=== PATIENT | female | born 1970 | race African-American/Black ===

== ENCOUNTER 2019-04-13 20:55 | Inpatient (IN) | payer OTHER ==
[2019-04-13 22:36] VITALS: BMI 22.8
--- NOTE | 2019-04-14 02:56 | HP ---
COWS - Scale Resting Pulse: 0= [place] 80 or Below Sweatin=Flushed/Facial Moisture Restless Observation: 0= Sits Still Pupil Size: 0= Normal to Room Light Bone or Joint Aches: 4=Acute Joint/Muscle Pain Runny Nose/ Eye Tearin= Runny Nose/Eyes GI Upset > 30mins: 1= Stomach Cramp Tremor Observation: 2= Slight Tremor Visible Yawning Observation: 0= None Anxiety or Irritability: 0= None Goose Flesh Skin: 3=Piloerection COWS Score: 14 CIWA Score Nausea/Vomitin-Mild Nausea/No Vomiting Muscle Tremors: 3 Anxiety: 3 Agitation: 3 Paroxysmal Sweats: 3 Orientation: 0-Oriented Tacttile Disturbances: 0-None Auditory Disturbances: 0-None Visual Disturbances: 0-None Headache: 2-Mild CIWA-Ar Total Score: 15 - Admission Criteria OASAS Guidelines: Admission for Medically Managed Detox: Requires at least one of the followin. CIWA greater than 12 2. Seizures within the past 24 hours 3. Delirium tremens within the past 24 hours 4. Hallucinations within the past 24 hours 5. Acute intervention needed for co occurring medical disorder 6. Acute intervention needed for co occurring psychiatric disorder 7. Severe withdrawal that cannot be handled at a lower level of care (continued vomiting, continued diarrhea, abnormal vital signs) requiring intravenous medication and/or fluids 8. Admission ROS [facility] Chief Complaint: SEEKING ADMISSION TO DETOX FROM HEROIN AND ALCOHOL Allergies/Adverse Reactions: Allergies Allergy/AdvReac Type Severity Reaction Status Date / Time No Known Allergies Allergy Verified 04/13/19 22:25 History of Present Illness: 48 years old male with a long history of heroin and alcohol dependence is seeking admission to detox.Patient has been in previous detox and reports insignificant period of sobriety. He denies past medical history and reports psych history of anxiety. denies suicidal ideation at this time Exam Limitations: No Limitations - Ebola screening Have you traveled outside of the country in the last 21 days: No (N) Have you had contact with anyone from an Ebola affected area: No Do you have a fever: No - Review of Systems Constitutional: Chills, Malaise, Changes in sleep EENT: reports: Nose Congestion Respiratory: reports: No Symptoms reported Cardiac: reports: No Symptoms Reported GI: reports: Poor Appetite, Poor Fluid Intake : reports: No Symptoms Reported, Flank Pain Musculoskeletal: reports: Back Pain, Joint Pain Integumentary: reports: Dryness, Flushing Neuro: reports: Tremors Endocrine: reports: No Symptoms Reported Hematology: reports: No Symptoms Reported Psychiatric: reports: Judgement Intact, Mood/Affect Appropiate, Orientated x3, Anxious Other Systems: Reviewed and Negative Patient History - Patient Medical History Hx Chronic Obstructive Pulmonary Disease (COPD): No Hx Cancer: No Hx Cardiac Disorders: No Hx Congestive Heart Failure: No Hx Hypertension: No Hx Hypercholesterolemia: No Hx Pacemaker: No HX Cerebrovascular Accident: No Hx Seizures: No Hx Dementia: No Hx Diabetes: No Hx Gastrointestinal Disorders: No Hx Liver Disease: No Hx Genitourinary Disorders: No Hx Sexually Transmitted Disorders: No Hx Renal Disease (ESRD): No Hx Thyroid Disease: No Hx Human Immunodeficiency Virus (HIV): No Hx Hepatitis C: No Hx Depression: No Hx Suicide Attempt: No Hx Bipolar Disorder: No Hx Schizophrenia: No - Patient Surgical History Past Surgical History: No - PPD History Previous Implant?: Yes Documented Results: Negative w/o proof Implanted On Prior [facility] Admission?: No PPD to be Administered?: Yes - Reproductive History Patient is a Female of Child Bearing Age (11 -55 yrs old): Yes Last Menstrual Period: 04/12/19 - Smoking Cessation Smoking history: Current every day smoker Have you smoked in the past 12 months: Yes Aproximately how many cigarettes per day: 10 Hx Chewing Tobacco Use: No Initiated information on smoking cessation: Yes 'Breaking Loose' booklet given: 04/13/19 - Substance & Tx. History Hx Alcohol Use: Yes Hx Substance Use: Yes Substance Use Type: Alcohol, Cocaine, Heroin, Marijuana, Opiates Hx Substance Use Treatment: Yes ([facility]) - Substances abused Crack Substance route: Smoking Frequency: Daily Amount used: 4 bags Age of first use: 15 Date of last use: 04/12/19 Heroin Substance route: Inhalation Frequency: Daily Amount used: 4 bags Age of first use: 28 Date of last use: 04/12/19 Alcohol Substance route: Oral Frequency: Daily Amount used: ' I don't know , as much as I get'. Age of first use: 15 Date of last use: 04/12/19 Admission Physical Exam [facility] - Vital Signs Vital Signs: Vital Signs - 24 hr 04/13/19 22:25 Temperature 97.3 F L Pulse Rate 57 L Respiratory 16 Rate Blood Pressure 97/63 - Physical General Appearance: Yes: Within Normal Limits, Moderate Distress HEENTM: Yes: Within Normal Limits Respiratory: Yes: Normal Breath Sounds, No Respiratory Distress Neck: Yes: Supple Breast: Yes: Breast Exam Deferred Cardiology: Yes: Regular Rhythm, Regular Rate Abdominal: Yes: Normal Bowel Sounds Genitourinary: Yes: Within Normal Limits Back: Yes: Normal Inspection Extremities: Yes: Tremors Neurological: Yes: Within Normal Limits Integumentary: Yes: Warm Lymphatic: Yes: Within Normal Limits - Diagnostic (1) Alcohol dependence with withdrawal, uncomplicated Current Visit: Yes Status: Acute (2) Opioid dependence with withdrawal Current Visit: Yes Status: Acute (3) Cocaine dependence Current Visit: Yes Status: Chronic Qualifiers: Substance use status: uncomplicated Qualified Code(s): F14.20 - Cocaine dependence, uncomplicated (4) Marijuana dependence Current Visit: Yes Status: Acute (5) Anxiety Current Visit: Yes Status: Chronic Cleared for Admission [facility] - Detox or Rehab [facility] Level of Care: Medically Managed Detox Regimen/Protocol: Methadone, Valium Claeared for Rehab Admission: No Breathalyzer - Breathalyzer Breathalyzer: 0 Urine Drug Screen - Test Device Lot number: [id number] Expiration date: 12/05/20 - Control Is test valid?: Yes - Results Drug screen NEGATIVE: No Urine drug screen results: THC-Marijuana, FINA-Cocaine, FEN-Fentanyl, MOP-Opiates , BZO-Benzodiazepines Inpatient Rehab Admission - Rehab Decision to Admit Inpatient rehab admission?: No
[2019-04-14] MEDS ORDERED: cloNIDine HCL 0.1 MG TABLET PO PRN (03:02)
[2019-04-14] MEDS ORDERED: LORazepam 1 MG TABLET PO PRN (03:02)
[2019-04-14] MEDS ORDERED: METHADONE HCL 10 MG TABLET (FOR DETOX USE ONLY) PO ONE (03:02)
[2019-04-14] MEDS ORDERED: ACETAMINOPHEN 325 MG TABLET (FP) PO PRN ×2 (03:05)
[2019-04-14] MEDS ORDERED: MAGNESIUM CITRATE 300 ML BOTTLE PO PRN (03:05)
[2019-04-14] MEDS ORDERED: hydrOXYzine PAMOATE 25 MG CAPSULE (FP) PO PRN (03:05)
[2019-04-14] MEDS ORDERED: MELATONIN 5 MG TABLETS PO PRN (03:05)
[2019-04-14] MEDS ORDERED: METHOCARBAMOL 500 MG TABLET PO PRN (03:05)
[2019-04-14] MEDS ORDERED: MENTHOL/PHENOL 1 EACH UD MM PRN (03:05)
[2019-04-14] MEDS ORDERED: NICOTINE POLACRILEX 2 MG GUM BUC PRN (03:05)
[2019-04-14] MEDS ORDERED: BISMUTH SUBSALICYLATE 524 MG/30 ML UD PO PRN (03:05)
[2019-04-14] MEDS ORDERED: MAG HYDROX/AL HYDROX/SIMETH 30 ML UNIT-DOSE CUP PO PRN (03:05)
[2019-04-14] MEDS ORDERED: IBUPROFEN 400 MG TABLET (FP) PO PRN (03:05)
[2019-04-14] MEDS ORDERED: MAGNESIUM HYDROX 2400MG/30ML ORAL SUSPENSION 30 ML CUP PO PRN (03:05)
[2019-04-14] MEDS: LORazepam 1 MG TABLET PO SCH ×4 (04:00→22:29)
[2019-04-14] MEDS: PRENATAL VITAMINS W/ FOLIC ACID TABLET (FP) PO SCH (10:58)
[2019-04-14] MEDS: NICOTINE 14 MG/24 HOURS TOPICAL PATCH TD SCH (10:58)
[2019-04-14] MEDS: THIAMINE HCL 100 MG TABLET (FP) PO SCH (22:29)
--- NOTE | 2019-04-14 23:26 | EKG ---
Test Reason : Blood Pressure : / mmHG Vent. Rate : 051 BPM Atrial Rate : 051 BPM P-R Int : 110 ms QRS Dur : 082 ms QT Int : 442 ms P-R-T Axes : 067 025 050 degrees QTc Int : 407 ms SINUS BRADYCARDIA WITH SINUS ARRHYTHMIA WITH SHORT NV ST ELEVATION, CONSIDER EARLY REPOLARIZATION BORDERLINE ECG NO PREVIOUS ECGS AVAILABLE Confirmed by JALYN SANDOVAL MD ([id number]) on 04/14/2019 11:26:13 PM Referred By: Greg Scott Confirmed By:JALYN SANDOVAL MD
[2019-04-15] MEDS: LORazepam 1 MG TABLET PO SCH ×4 (05:28→22:26)
--- NOTE | 2019-04-15 07:54 | CONSULT ---
[facility] Psychiatric Consult - Data Date of interview: 04/15/19 Admission source: [facility] Identifying data: Patient is a 48 year old single female, mother of three, unemployed, homeless and is not currently receiving financial assistance. This is patient's first admission to detox at [facility]. Patient admitted to for opiate dependence. Substance Abuse History: Smoking Cessation. Smoking history: Current every day smoker. Have you smoked in the past 12 months: Yes. Aproximately how many cigarettes per day: 10. Hx Chewing Tobacco Use: No. Initiated information on smoking cessation: Yes. 'Breaking Loose' booklet given: 04/13/19. - Substance & Tx. History. Hx Alcohol Use: Yes. Hx Substance Use: Yes. Substance Use Type : Alcohol, Cocaine, Heroin, Marijuana, Opiates. Hx Substance Use Treatment: Yes ([facility]). - Substances abused. Crack. Substance route: Smoking. Frequency: Daily. Amount used: 4 bags. Age of first use: 15. Date of last use: 04/12/19. Heroin. Substance route: Inhalation. Frequency: Daily. Amount used: 4 bags. Age of first use: 28. Date of last use: . Alcohol. Substance route: Oral. Frequency: Daily. Amount used: ' I don't know , as much as I get'. Age of first use: 15. Date of last use: Medical History: denies. Psychiatric History: Patient denies history of psychiatric hospitalizations and suicide attempt. First psychiatric contact was while in senior care several years ago and reports being prescribed remeron 30mg. Claims to have been diagnosed with severe anxiety. States she only receives psychiatric treatment when admitted to detox/rehab facilities. Ms. Luong reports last taking remeron 30mg in April of 2018. At present patient reports feeling anxious and is experiencing difficulty sleeping. Physical/Sexual Abuse/Trauma History: denies. Mental Status Exam - Mental Status Exam Alert and Oriented to: Time, Place, Person Cognitive Function: Good Patient Appearance: Well Groomed Mood: Withdrawn Affect: Mood Congruent Patient Behavior: Cooperative Speech Pattern: Appropriate Voice Loudness: Normal Thought Process: Goal Oriented Thought Disorder: Not Present Hallucinations: Denies Suicidal Ideation: Denies Homicidal Ideation: Denies Insight/Judgement: Poor Sleep: Poorly Appetite: Fair Muscle strength/Tone: Normal Gait/Station: Normal Psychiatric Findings - Problem List ([place] 1, 2,3) (1) Substance-induced sleep disorder Current Visit: Yes Status: Acute (2) Alcohol dependence with withdrawal, uncomplicated Current Visit: Yes Status: Acute (3) Marijuana dependence Current Visit: Yes Status: Acute (4) Opioid dependence with withdrawal Current Visit: Yes Status: Acute (5) Substance-induced anxiety disorder Current Visit: Yes Status: Acute - Initial Treatment Plan Initial Treatment Plan: Psychoeducation provided. Detoxification in progress. Will order Remeron 15mg HS. Benefits and side effects discussed. Verbal consent given.
[2019-04-15] MEDS ORDERED: METHADONE HCL 5 MG TABLET (FOR DETOX USE ONLY) PO ONE (10:00)
[2019-04-15 10:03] LABS: HEMATOCRIT 30.4 % (32.4-45.2); MCH 28.4 pg (25.7-33.7); MCHC 32.9 g/dl (32.0-36.0); MEAN CELL VOLUME 86.3 fl (80-96); MEAN PLT VOLUME 8.5 fl (7.5-11.1); PLATELET COUNT 239 K/MM3 (134-434); RBC 3.52 M/mm3 (3.60-5.2); RDW 18.1 % (11.6-15.6); WHITE BLOOD COUNT 3.8 K/mm3 (4.0-10.0)
[2019-04-15 10:11] LABS: ALBUMIN 3.3 g/dl (3.4-5.0); BILIRUBIN,TOTAL 0.3 mg/dL (0.2-1); BLOOD UREA NITROGEN 7.5 mg/dL (7-18); CALCIUM 9.6 mg/dL (8.5-10.1); CREATININE 0.8 mg/dL (0.55-1.3); POTASSIUM 3.9 mmol/L (3.5-5.1); TOT PROT 7.1 g/dl (6.4-8.2)
[2019-04-15] MEDS: PRENATAL VITAMINS W/ FOLIC ACID TABLET (FP) PO SCH (10:24)
[2019-04-15] MEDS: NICOTINE 14 MG/24 HOURS TOPICAL PATCH TD SCH (10:25)
--- NOTE | 2019-04-15 13:52 | PN ---
S CIWA - CIWA Score Nausea/Vomitin-Mild Nausea/No Vomiting Muscle Tremors: 3 Anxiety: 3 Agitation: 2 Paroxysmal Sweats: 2 Orientation: 0-Oriented Tacttile Disturbances: 1-Very Mild Itch/Numbness Auditory Disturbances: 0-None Visual Disturbances: 0-None Headache: 1-Very Mild CIWA-Ar Total Score: 13 BHS COWS - Scale Resting Pulse: 0= [place] 80 or Below Sweatin= Chills/Flushing Restless Observation: 0= Sits Still Pupil Size: 1= Pupils >than Normal Bone or Joint Aches: 1= Mild Discomfort Runny Nose/ Eye Tearin= Nasal Congestion GI Upset > 30mins: 2= Nausea/Diarrhea Tremor Observation of Outstretched Hands: 2= Slight Tremor Visible Yawning Observation: 0= None Anxiety or Irritability: 2=Irritable/Anxious Goose Flesh Skin: 3=Piloerection COWS Score: 13 S Progress Note (SOAP) Subjective: 48 years old female admitted on 04/14/19 for alcohol and opiate withdrawal sx management treated wtih ativan and methadone detox regimen feeling tired resting on bed at breakfast and lunch prefers to resting on bed today Objective: 04/15/19 13:51 Vital Signs Temperature 97.2 F L 04/15/19 13:09 Pulse Rate 62 04/15/19 13:09 Respiratory Rate 16 04/15/19 13:09 Blood Pressure 123/94 04/15/19 13:09 O2 Sat by Pulse Oximetry (%) Laboratory Last Values WBC 3.8 K/mm3 (4.0-10.0) L 04/15/19 07:50 RBC 3.52 M/mm3 (3.60-5.2) L 04/15/19 07:50 Hgb 10.0 GM/dL (10.7-15.3) L 04/15/19 07:50 Hct 30.4 % (32.4-45.2) L 04/15/19 07:50 MCV 86.3 fl (80-96) 04/15/19 07:50 MCH 28.4 pg (25.7-33.7) 04/15/19 07:50 MCHC 32.9 g/dl (32.0-36.0) 04/15/19 07:50 RDW 18.1 % (11.6-15.6) H 04/15/19 07:50 Plt Count 239 K/MM3 (134-434) 04/15/19 07:50 MPV 8.5 fl (7.5-11.1) 04/15/19 07:50 Sodium 140 mmol/L (136-145) 04/15/19 07:50 Potassium 3.9 mmol/L (3.5-5.1) 04/15/19 07:50 Chloride 106 mmol/L (98-107) 04/15/19 07:50 Carbon Dioxide 27 mmol/L (21-32) 04/15/19 07:50 Anion Gap 7 MMOL/L (8-16) L 04/15/19 07:50 BUN 7.5 mg/dL (7-18) 04/15/19 07:50 Creatinine 0.8 mg/dL (0.55-1.3) 04/15/19 07:50 Est GFR (CKD-EPI)AfAm 99.63 04/15/19 07:50 Est GFR (CKD-EPI)NonAf 85.96 04/15/19 07:50 Random Glucose 114 mg/dL (74-106) H 04/15/19 07:50 Calcium 9.6 mg/dL (8.5-10.1) 04/15/19 07:50 Total Bilirubin 0.3 mg/dL (0.2-1) 04/15/19 07:50 AST 8 U/L (15-37) L 04/15/19 07:50 ALT 12 U/L (13-61) L 04/15/19 07:50 Alkaline Phosphatase 64 U/L (45-117) 04/15/19 07:50 Total Protein 7.1 g/dl (6.4-8.2) 04/15/19 07:50 Albumin 3.3 g/dl (3.4-5.0) L 04/15/19 07:50 RPR Titer Nonreactive (NONREACTIVE) 04/15/19 07:50 lab noted Assessment: 04/15/19 13:51 alcohol and opiate withdrawal sx Plan: ativan and methadone detox regimen
[2019-04-15] MEDS: THIAMINE HCL 100 MG TABLET (FP) PO SCH (22:26)
[2019-04-15] MEDS: MIRTAZAPINE 15 MG TABLET (FP) PO SCH (22:26)
[2019-04-16] MEDS ORDERED: LORazepam 0.5 MG TABLET PO PRN
[2019-04-16] MEDS: LORazepam 0.5 MG TABLET PO SCH ×4 (05:50→22:18)
[2019-04-16] MEDS ORDERED: METHADONE HCL 10 MG TABLET (FOR DETOX USE ONLY) PO ONE (10:00)
[2019-04-16] MEDS: NICOTINE 14 MG/24 HOURS TOPICAL PATCH TD SCH (10:34)
[2019-04-16] MEDS: PRENATAL VITAMINS W/ FOLIC ACID TABLET (FP) PO SCH (10:34)
--- NOTE | 2019-04-16 11:08 | PN ---
S CIWA - CIWA Score Nausea/Vomitin-No Nausea/No Vomiting Muscle Tremors: 2 Anxiety: 2 Agitation: 2 Paroxysmal Sweats: 1-Minimal Palms Moist Orientation: 0-Oriented Tacttile Disturbances: 0-None Auditory Disturbances: 0-None Visual Disturbances: 0-None Headache: 1-Very Mild CIWA-Ar Total Score: 8 BHS COWS - Scale Resting Pulse: 0= [place] 80 or Below Sweatin= Chills/Flushing Restless Observation: 0= Sits Still Pupil Size: 1= Pupils >than Normal Bone or Joint Aches: 1= Mild Discomfort Runny Nose/ Eye Tearin= None GI Upset > 30mins: 1= Stomach Cramp Tremor Observation of Outstretched Hands: 1= Tremor [place], Not Seen Yawning Observation: 1= 1-2x During Session Anxiety or Irritability: 2=Irritable/Anxious Goose Flesh Skin: 0=Smooth Skin COWS Score: 8 BHS Progress Note (SOAP) Subjective: 48 years old female admitted on 04/14/19 for alcohol opiate withdrawal sx ativan and methadone treatment regimen feeling better today ate breakfast ambulating from bed to bathroom steady gait encourage the patient to attend groups and meetings offered in detox unit Objective: 04/16/19 11:14 Vital Signs Temperature 97.5 F L 04/16/19 09:19 Pulse Rate 56 L 04/16/19 09:19 Respiratory Rate 16 04/16/19 09:19 Blood Pressure 107/61 04/16/19 09:19 O2 Sat by Pulse Oximetry (%) Laboratory Last Values WBC 3.8 K/mm3 (4.0-10.0) L 04/15/19 07:50 RBC 3.52 M/mm3 (3.60-5.2) L 04/15/19 07:50 Hgb 10.0 GM/dL (10.7-15.3) L 04/15/19 07:50 Hct 30.4 % (32.4-45.2) L 04/15/19 07:50 MCV 86.3 fl (80-96) 04/15/19 07:50 MCH 28.4 pg (25.7-33.7) 04/15/19 07:50 MCHC 32.9 g/dl (32.0-36.0) 04/15/19 07:50 RDW 18.1 % (11.6-15.6) H 04/15/19 07:50 Plt Count 239 K/MM3 (134-434) 04/15/19 07:50 MPV 8.5 fl (7.5-11.1) 04/15/19 07:50 Sodium 140 mmol/L (136-145) 04/15/19 07:50 Potassium 3.9 mmol/L (3.5-5.1) 04/15/19 07:50 Chloride 106 mmol/L (98-107) 04/15/19 07:50 Carbon Dioxide 27 mmol/L (21-32) 04/15/19 07:50 Anion Gap 7 MMOL/L (8-16) L 04/15/19 07:50 BUN 7.5 mg/dL (7-18) 04/15/19 07:50 Creatinine 0.8 mg/dL (0.55-1.3) 04/15/19 07:50 Est GFR (CKD-EPI)AfAm 99.63 04/15/19 07:50 Est GFR (CKD-EPI)NonAf 85.96 04/15/19 07:50 Random Glucose 114 mg/dL (74-106) H 04/15/19 07:50 Calcium 9.6 mg/dL (8.5-10.1) 04/15/19 07:50 Total Bilirubin 0.3 mg/dL (0.2-1) 04/15/19 07:50 AST 8 U/L (15-37) L 04/15/19 07:50 ALT 12 U/L (13-61) L 04/15/19 07:50 Alkaline Phosphatase 64 U/L (45-117) 04/15/19 07:50 Total Protein 7.1 g/dl (6.4-8.2) 04/15/19 07:50 Albumin 3.3 g/dl (3.4-5.0) L 04/15/19 07:50 RPR Titer Nonreactive (NONREACTIVE) 04/15/19 07:50 lab noted Assessment: 04/16/19 11:14 alcohol and opiate withdrawal sx Plan: ativan and methadone detox regimen
[2019-04-16] MEDS: THIAMINE HCL 100 MG TABLET (FP) PO SCH (22:17)
[2019-04-16] MEDS: MIRTAZAPINE 15 MG TABLET (FP) PO SCH (22:18)
[2019-04-17] MEDS: LORazepam 0.5 MG TABLET PO ONE (05:57)
[2019-04-17] MEDS ORDERED: METHADONE HCL 5 MG TABLET (FOR DETOX USE ONLY) PO ONE (06:00)
[2019-04-17 09:19] VITALS: BP 100/60; PULSE 53; TEMP 98.4
[2019-04-17] MEDS: NICOTINE 14 MG/24 HOURS TOPICAL PATCH TD SCH (10:36)
[2019-04-17] MEDS: PRENATAL VITAMINS W/ FOLIC ACID TABLET (FP) PO SCH (10:37)
--- NOTE | 2019-04-17 13:27 | DS ---
[facility] Detox Discharge Summary Admission Date: 04/14/19 Discharge Date: 04/17/19 - History Present History: Alcohol Dependence, Opioid Dependence Additional Comments: 48 years old female admitted on 04/14/19 for alcohol and opiate withdrawal sx management treated with ativan and methadone detox regimen patient tolerated well alert oriented x 3 respiratory clear lung bilaterally on auscultation skin warm and dry ambulating with walker steady gait - Physical Exam Results Vital Signs: Vital Signs Temperature 98.4 F 04/17/19 09:18 Pulse Rate 53 L 04/17/19 09:18 Respiratory Rate 18 04/17/19 09:18 Blood Pressure 100/60 04/17/19 09:18 O2 Sat by Pulse Oximetry (%) Pertinent Admission Physical Exam Findings: alcohol and opiate withdrawal sx Vital Signs Temperature 98.4 F 04/17/19 09:18 Pulse Rate 53 L 04/17/19 09:18 Respiratory Rate 18 04/17/19 09:18 Blood Pressure 100/60 04/17/19 09:18 O2 Sat by Pulse Oximetry (%) Laboratory Last Values WBC 3.8 K/mm3 (4.0-10.0) L 04/15/19 07:50 RBC 3.52 M/mm3 (3.60-5.2) L 04/15/19 07:50 Hgb 10.0 GM/dL (10.7-15.3) L 04/15/19 07:50 Hct 30.4 % (32.4-45.2) L 04/15/19 07:50 MCV 86.3 fl (80-96) 04/15/19 07:50 MCH 28.4 pg (25.7-33.7) 04/15/19 07:50 MCHC 32.9 g/dl (32.0-36.0) 04/15/19 07:50 RDW 18.1 % (11.6-15.6) H 04/15/19 07:50 Plt Count 239 K/MM3 (134-434) 04/15/19 07:50 MPV 8.5 fl (7.5-11.1) 04/15/19 07:50 Sodium 140 mmol/L (136-145) 04/15/19 07:50 Potassium 3.9 mmol/L (3.5-5.1) 04/15/19 07:50 Chloride 106 mmol/L (98-107) 04/15/19 07:50 Carbon Dioxide 27 mmol/L (21-32) 04/15/19 07:50 Anion Gap 7 MMOL/L (8-16) L 04/15/19 07:50 BUN 7.5 mg/dL (7-18) 04/15/19 07:50 Creatinine 0.8 mg/dL (0.55-1.3) 04/15/19 07:50 Est GFR (CKD-EPI)AfAm 99.63 04/15/19 07:50 Est GFR (CKD-EPI)NonAf 85.96 04/15/19 07:50 Random Glucose 114 mg/dL (74-106) H 04/15/19 07:50 Calcium 9.6 mg/dL (8.5-10.1) 04/15/19 07:50 Total Bilirubin 0.3 mg/dL (0.2-1) 04/15/19 07:50 AST 8 U/L (15-37) L 04/15/19 07:50 ALT 12 U/L (13-61) L 04/15/19 07:50 Alkaline Phosphatase 64 U/L (45-117) 04/15/19 07:50 Total Protein 7.1 g/dl (6.4-8.2) 04/15/19 07:50 Albumin 3.3 g/dl (3.4-5.0) L 04/15/19 07:50 RPR Titer Nonreactive (NONREACTIVE) 04/15/19 07:50 lab noted - Treatment Hospital Course: Detox Protocol Followed, Detoxed Safely, Responded well, Discharged Condition Good, Rehab Referral Accepted Patient has Accepted [facility] - Medication Discharge Medications: Ambulatory Orders Mirtazapine [Remeron -] 15 mg PO HS 04/13/19 - Diagnosis (1) Substance induced mood disorder Status: Suspected (2) Alcohol dependence with withdrawal, uncomplicated Status: Acute (3) Opioid dependence with withdrawal Status: Acute - AMA Did Patient Leave Against Medical Advice: No
== END 2019-04-17 12:19 | disposition other institution (70) | DRG 773 ==
LOC: YASAS 20:55 → Y3N 04-14 03:13
PROVIDERS: ADMIT Allergy & Immunology; ATTEND Allergy & Immunology
PROC: HZ2ZZZZ Detoxification Services for Substance Abuse Treatment (ICD-10-PCS; principal; 2019-04-14)
DX: F10.230 Alcohol dependence with withdrawal, uncomplicated (principal); F11.23 Opioid dependence with withdrawal; F14.20 Cocaine dependence, uncomplicated; F12.20 Cannabis dependence, uncomplicated; F17.210 Nicotine dependence, cigarettes, uncomplicated; F19.282 Other psychoactive substance dependence with psychoactive substance-induced sleep disorder; F19.280 Other psychoactive substance dependence with psychoactive substance-induced anxiety disorder; F19.24 Other psychoactive substance dependence with psychoactive substance-induced mood disorder; F41.9 Anxiety disorder, unspecified
CPT/HCPCS: 36415; 80053; 85027; 86593; 93005; 93010

== ENCOUNTER 2019-04-17 11:43 | Inpatient (IN) | payer OTHER ==
[2019-04-17] MEDS ORDERED: ACETAMINOPHEN 325 MG TABLET (FP) PO PRN (13:28)
[2019-04-17] MEDS ORDERED: MAGNESIUM HYDROX 2400MG/30ML ORAL SUSPENSION 30 ML CUP PO PRN (13:28)
[2019-04-17] MEDS ORDERED: MAGNESIUM CITRATE 300 ML BOTTLE PO PRN (13:28)
[2019-04-17] MEDS ORDERED: MENTHOL/PHENOL 1 EACH UD MM PRN (13:28)
[2019-04-17] MEDS ORDERED: LOPERAMIDE HCL 2 MG CAPSULE PO PRN (13:28)
[2019-04-17] MEDS ORDERED: guaiFENesin 200 MG/10 ML 10 ML UNIT-DOSE CUPS PO PRN (13:28)
[2019-04-17] MEDS ORDERED: P-EPHED 60MG/TRIPROLIDI 2.5MG TABLET PO PRN (13:28)
[2019-04-17] MEDS ORDERED: NICOTINE POLACRILEX 2 MG GUM BUC PRN (13:28)
--- NOTE | 2019-04-17 13:28 | HP ---
[facility] Rehab Assess/Revision - Admission History Admitted to Rehab from: [facility] Date of Admission to Rehab: 04/17/19 - Vital signs Vital Signs: Vital Signs Period Temp Pulse Resp BP Sys/Grady Pulse Ox Last 24 Hr 98.3 F 90 18 93/60 - Findings Detox History & Physical reviewed: Yes Concur with findings: Yes Comments/Additional Findings: transferred from detox to rehab admission as per protocol Inpatient Rehab Admission - Rehab Decision to Admit Inpatient rehab admission?: Yes - Initial Determination Are CD services needed?: Yes Free of communicable disease: Yes Not in need of hospitalization: Yes - Rehab Admission Criteria Previous failed treatment: Yes Poor recovery environment: Yes Comorbidities: Yes Lacks judgement: Yes Patient is meeting Inpatient Rehab admission criteria:: Yes
--- NOTE | 2019-04-17 15:35 | PN ---
S Progress Note Note: 48 years old male with a long history of heroin and alcohol dependence, denies past medical history and reports psych history of anxiety. denies suicidal ideation at this time Vital Signs Period Temp Pulse Resp BP Sys/Grady Pulse Ox Last 24 Hr 98.3 F 90 18 93/60 P/E: General: no apparent distress Neuro: CN 2-12 intact HEENTM: normocephalic Orders reviewed. Will continue to monitor.
[2019-04-17] MEDS: THIAMINE HCL 100 MG TABLET (FP) PO SCH (21:22)
[2019-04-17] MEDS: MELATONIN 5 MG TABLETS PO PRN (21:22)
[2019-04-17] MEDS ORDERED: MIRTAZAPINE 30 MG TABLET (FP) PO SCH (22:00)
[2019-04-18] MEDS: PRENATAL VITAMINS W/ FOLIC ACID TABLET (FP) PO SCH (09:09)
[2019-04-18] MEDS: IBUPROFEN 400 MG TABLET (FP) PO PRN (09:09)
[2019-04-18] MEDS: NICOTINE 14 MG/24 HOURS TOPICAL PATCH TD SCH (09:10)
--- NOTE | 2019-04-18 09:58 | PN ---
[facility] Progress Note (SOAP) Subjective: Patient admitted to rehab after completing detox. PMHX:48 years old male with a long history of heroin and alcohol dependence. .Patient has been in previous detox and reports insignificant period of sobriety. He denies past medical history and reports psych history of anxiety. denies suicidal ideation at this time Objective: P/E General: no apparent distress, menstrual cramps HEENTM: Normocephalic, PERRLA Neck: supple ABD: soft, pain on palpation, non-distended Neuro: CN 2-12 intact. 04/18/19 09:54 Vital Signs Period Temp Pulse Resp BP Sys/Grady Pulse Ox Last 24 Hr 97.8 F-98.3 F 50-90 16-18 93-99/60-66 Assessment: Substance use rehab Menstrual cramps 04/18/19 09:56 Plan: Continue substance abuse treatment Motrin for cramps, Maintain safety
--- NOTE | 2019-04-18 10:11 | CONSULT ---
[facility] Psychiatric Consult - Data Date of interview: 04/18/19 Admission source: [facility] Identifying data: Patient is a 48 year old single female, mother of three, unemployed, homeless and is not currently receiving financial assistance. This is patient's first admission to detox at [facility]. Patient admitted to for opiate dependence. Substance Abuse History: Smoking Cessation. Smoking history: Current every day smoker. Have you smoked in the past 12 months: Yes. Aproximately how many cigarettes per day: 10. Hx Chewing Tobacco Use: No. Initiated information on smoking cessation: Yes. 'Breaking Loose' booklet given: 04/13/19. - Substance & Tx. History. Hx Alcohol Use: Yes. Hx Substance Use: Yes. Substance Use Type : Alcohol, Cocaine, Heroin, Marijuana, Opiates. Hx Substance Use Treatment: Yes ([facility]). - Substances abused. Crack. Substance route: Smoking. Frequency: Daily. Amount used: 4 bags. Age of first use: 15. Date of last use: 04/12/19. Heroin. Substance route: Inhalation. Frequency: Daily. Amount used: 4 bags. Age of first use: 28. Date of last use: . Alcohol. Substance route: Oral. Frequency: Daily. Amount used: ' I don't know , as much as I get'. Age of first use: 15. Date of last use: Medical History: denies. Psychiatric History: Patient seen by health science writer in detox. History remains consistent. Patient denies history of psychiatric hospitalizations and suicide attempt. First psychiatric contact was last year while in [facility]. She reports being diagnosed with anxiety and was prescribed remeron 30mg HS. States she only see's a psychiatrist when admitted to detox/rehab facilities. Ms. Luong reports last taking remeron 30mg in April of 2018. At present patient reports stable mood. Physical/Sexual Abuse/Trauma History: denies. Mental Status Exam - Mental Status Exam Alert and Oriented to: Time, Place, Person Cognitive Function: Good Patient Appearance: Well Groomed Mood: Withdrawn Affect: Mood Congruent Patient Behavior: Cooperative Speech Pattern: Appropriate Voice Loudness: Moderately Soft/Quiet Thought Process: Goal Oriented Thought Disorder: Not Present Hallucinations: Denies Suicidal Ideation: Denies Homicidal Ideation: Denies Insight/Judgement: Poor Sleep: Fair Appetite: Fair Muscle strength/Tone: Normal Gait/Station: Normal Psychiatric Findings - Problem List ([place] 1, 2,3) (1) Alcohol use disorder Current Visit: Yes Status: Acute (2) Marijuana dependence Current Visit: Yes Status: Acute (3) Substance-induced anxiety disorder Current Visit: Yes Status: Acute (4) Opioid dependence Current Visit: Yes Status: Acute - Initial Treatment Plan Initial Treatment Plan: Psychoeducation provided. Rehab in progress. Will order Remeron 30mg HS. Benefits and side effects discussed. Verbal consent given.
[2019-04-18] MEDS: MIRTAZAPINE 30 MG TABLET (FP) PO SCH (21:34)
[2019-04-18] MEDS: THIAMINE HCL 100 MG TABLET (FP) PO SCH (21:34)
[2019-04-18] MEDS: MELATONIN 5 MG TABLETS PO PRN (21:35)
[2019-04-19] MEDS: IBUPROFEN 400 MG TABLET (FP) PO PRN ×2 (10:15→18:36)
[2019-04-19] MEDS: PRENATAL VITAMINS W/ FOLIC ACID TABLET (FP) PO SCH (10:15)
[2019-04-19] MEDS: NICOTINE 14 MG/24 HOURS TOPICAL PATCH TD SCH (10:15)
[2019-04-19] MEDS: THIAMINE HCL 100 MG TABLET (FP) PO SCH (21:21)
[2019-04-19] MEDS: MIRTAZAPINE 30 MG TABLET (FP) PO SCH (21:22)
[2019-04-19] MEDS: MELATONIN 5 MG TABLETS PO PRN (21:22)
[2019-04-20] MEDS ORDERED: COLLOIDAL OATMEAL 1 BAR EACH TP PRN (08:25)
[2019-04-20] MEDS: NICOTINE 14 MG/24 HOURS TOPICAL PATCH TD SCH (09:51)
[2019-04-20] MEDS: PRENATAL VITAMINS W/ FOLIC ACID TABLET (FP) PO SCH (09:51)
[2019-04-20] MEDS: IBUPROFEN 400 MG TABLET (FP) PO PRN ×2 (09:52→21:28)
[2019-04-20] MEDS: MELATONIN 5 MG TABLETS PO PRN (21:27)
[2019-04-20] MEDS: MIRTAZAPINE 30 MG TABLET (FP) PO SCH (21:27)
[2019-04-20] MEDS: THIAMINE HCL 100 MG TABLET (FP) PO SCH (21:27)
[2019-04-21] MEDS: PRENATAL VITAMINS W/ FOLIC ACID TABLET (FP) PO SCH (09:10)
[2019-04-21] MEDS: NICOTINE 14 MG/24 HOURS TOPICAL PATCH TD SCH (09:11)
[2019-04-21] MEDS: MIRTAZAPINE 30 MG TABLET (FP) PO SCH (21:16)
[2019-04-21] MEDS: MELATONIN 5 MG TABLETS PO PRN (21:17)
[2019-04-21] MEDS: THIAMINE HCL 100 MG TABLET (FP) PO SCH (21:18)
[2019-04-21] MEDS: MAG HYDROX/AL HYDROX/SIMETH 30 ML UNIT-DOSE CUP PO PRN (21:18)
[2019-04-22] MEDS: PRENATAL VITAMINS W/ FOLIC ACID TABLET (FP) PO SCH (09:16)
[2019-04-22] MEDS: NICOTINE 14 MG/24 HOURS TOPICAL PATCH TD SCH (09:16)
[2019-04-22] MEDS: MIRTAZAPINE 30 MG TABLET (FP) PO SCH (21:22)
[2019-04-22] MEDS: THIAMINE HCL 100 MG TABLET (FP) PO SCH (21:22)
[2019-04-23] MEDS: PRENATAL VITAMINS W/ FOLIC ACID TABLET (FP) PO SCH (09:43)
[2019-04-23] MEDS: MAG HYDROX/AL HYDROX/SIMETH 30 ML UNIT-DOSE CUP PO PRN (09:43)
[2019-04-23] MEDS: NICOTINE 14 MG/24 HOURS TOPICAL PATCH TD SCH (09:44)
[2019-04-23] MEDS: THIAMINE HCL 100 MG TABLET (FP) PO SCH (21:33)
[2019-04-23] MEDS: MIRTAZAPINE 30 MG TABLET (FP) PO SCH (21:33)
[2019-04-24] MEDS: PRENATAL VITAMINS W/ FOLIC ACID TABLET (FP) PO SCH (10:24)
[2019-04-24] MEDS: NICOTINE 14 MG/24 HOURS TOPICAL PATCH TD SCH (10:25)
[2019-04-24] MEDS: THIAMINE HCL 100 MG TABLET (FP) PO SCH (21:43)
[2019-04-24] MEDS: MIRTAZAPINE 30 MG TABLET (FP) PO SCH (21:43)
[2019-04-25] MEDS: PRENATAL VITAMINS W/ FOLIC ACID TABLET (FP) PO SCH (09:56)
[2019-04-25] MEDS: NICOTINE 14 MG/24 HOURS TOPICAL PATCH TD SCH (09:56)
[2019-04-25] MEDS: THIAMINE HCL 100 MG TABLET (FP) PO SCH (21:43)
[2019-04-25] MEDS: MIRTAZAPINE 30 MG TABLET (FP) PO SCH (21:44)
[2019-04-26 07:04] VITALS: BP 115/72; PULSE 59; TEMP 98.2
[2019-04-26] MEDS: NICOTINE 14 MG/24 HOURS TOPICAL PATCH TD SCH (09:09)
[2019-04-26] MEDS: PRENATAL VITAMINS W/ FOLIC ACID TABLET (FP) PO SCH (09:09)
--- NOTE | 2019-04-26 12:08 | DS ---
[facility] Rehab Discharge Summary - [facility] Rehab Discharge Summary Admission Date: 04/17/19 Discharge Date: 04/26/19 - History Present History: Alcohol dependence, Cannabis dependence, Cocaine dependence, Opioid dependence Additional Comments: Pt is a 48 y/o female with a hx of DAMIAN-alcohol, heroin,cocaine and marijuana use admitted to rehab and scheduled for discharge on 04/27/19. Pt reports homelessness and plans to follow up at [facility] in [facility] tomorrow for placement. Pt has been referred to [facility] for CD aftercare treatment. Pt was instructed to follow up with [facility] for primary care once situated with housing needs. Pertinent Past History: Denies PMHx Psych Hx of Anxiety - Discharge Physical Exam Vital Signs: Vital Signs Temperature 98.2 F 04/26/19 07:02 Pulse Rate 59 L 04/26/19 07:02 Respiratory Rate 16 04/26/19 07:02 Blood Pressure 115/72 04/26/19 07:02 O2 Sat by Pulse Oximetry (%) Alert o x 3, denies s/h/i nad oob ambulating with steady gait cardiac:s1 s2, rrr lungs;cta,sandrine. abdomen;soft,+bs,nt,flat extremities/skin:no edma,full ROM/weight bearing;skin intact Pertinent Admission Physical Exam Findings: Unremarkable - Treatment Discharge Condition: Discharge condition good Hospital Course: Rehabilitated safely and responded well CD aftercare referral acepted to [facility] - Medication Discharge Medications: Ambulatory Orders Mirtazapine [Remeron -] 15 mg PO HS 04/13/19 - Medication-Assisted Treatment (MAT) Medication-Assisted Treatment (MAT): No - Discharge Instructions Diet, activity, other medical instructions: Diet:Regular Activity: oob ad teresa Other medical instructions:Follow up with CD aftercare with [place], [place] as scheduled. Follow up with primary care with [facility] as needed. - Diagnosis (1) Alcohol use disorder Current Visit: Yes Status: Chronic (2) Marijuana dependence Current Visit: Yes Status: Chronic (3) Opioid dependence Current Visit: Yes Status: Chronic Qualifiers: Substance use status: uncomplicated Qualified Code(s): F11.20 - Opioid dependence, uncomplicated (4) Anxiety Current Visit: Yes Status: Chronic (5) Cocaine dependence Current Visit: Yes Status: Chronic Qualifiers: Substance use status: uncomplicated Qualified Code(s): F14.20 - Cocaine dependence, uncomplicated - Follow-up Referral Minutes to complete discharge: 20 - AMA Did Patient Leave Against Medical Advice: No
[2019-04-26] MEDS: MIRTAZAPINE 30 MG TABLET (FP) PO SCH (21:38)
[2019-04-26] MEDS: MAG HYDROX/AL HYDROX/SIMETH 30 ML UNIT-DOSE CUP PO PRN (21:38)
[2019-04-26] MEDS: THIAMINE HCL 100 MG TABLET (FP) PO SCH (21:38)
[2019-04-27] MEDS: PRENATAL VITAMINS W/ FOLIC ACID TABLET (FP) PO SCH (09:08)
[2019-04-27] MEDS: NICOTINE 14 MG/24 HOURS TOPICAL PATCH TD SCH (09:09)
== END 2019-04-27 09:10 | disposition home or self-care (01) | DRG 772 ==
LOC: YASAS 11:43 → Y3E 11:45
PROVIDERS: ADMIT Neuromusculoskeletal Medicine & OMM; ATTEND Neuromusculoskeletal Medicine & OMM
PROC: HZ42ZZZ Group Counseling for Substance Abuse Treatment, Cognitive-Behavioral (ICD-10-PCS; principal; 2019-04-17)
DX: F11.20 Opioid dependence, uncomplicated (principal); F10.20 Alcohol dependence, uncomplicated; F14.20 Cocaine dependence, uncomplicated; F12.20 Cannabis dependence, uncomplicated; F41.9 Anxiety disorder, unspecified

== ENCOUNTER 2020-12-10 12:08 | Inpatient (IN) | payer OTHER ==
[2020-12-10 13:51] VITALS: BMI 20.9
[2020-12-10] MEDS ORDERED: cloNIDine HCL 0.1 MG TABLET PO PRN (15:47)
[2020-12-10] MEDS ORDERED: BISMUTH SUBSALICYLATE 524 MG/30 ML PO PRN (15:47)
[2020-12-10] MEDS ORDERED: MAGNESIUM HYDROX 2400MG/30ML ORAL SUSPENSION 30 ML CUP PO PRN (15:47)
[2020-12-10] MEDS ORDERED: MAGNESIUM CITRATE 300 ML BOTTLE PO PRN (15:47)
[2020-12-10] MEDS ORDERED: ACETAMINOPHEN 325 MG TABLET (FP) PO PRN (15:47)
[2020-12-10] MEDS ORDERED: NICOTINE 10 MG CARTRIDGE (INHALER) IH PRN (15:47)
[2020-12-10] MEDS ORDERED: MAG HYDROX/AL HYDROX/SIMETH 30 ML UNIT-DOSE CUP PO PRN (15:47)
[2020-12-10] MEDS ORDERED: MENTHOL/PHENOL 1 EACH UD MM PRN (15:47)
[2020-12-10] MEDS ORDERED: METHOCARBAMOL 500 MG TABLET PO PRN (15:47)
[2020-12-10] MEDS ORDERED: methaDONE HCL 10 MG TABLET (FOR DETOX USE ONLY) PO ONE (15:47)
[2020-12-10] MEDS ORDERED: ONDANSETRON *ODT* 4 MG TABLET SL PRN (15:47)
[2020-12-10] MEDS ORDERED: methaDONE HCL 10 MG TABLET (FOR DETOX USE ONLY) ONE (18:23)
[2020-12-10] MEDS: hydrOXYzine PAMOATE 25 MG CAPSULE (FP) PO SCH ×2 (20:20→22:21)
[2020-12-10] MEDS: MELATONIN 5 MG TABLETS PO SCH (22:21)
[2020-12-10] MEDS: THIAMINE HCL 100 MG TABLET (FP) PO SCH (22:21)
[2020-12-10] MEDS: IBUPROFEN 400 MG TABLET (FP) PO PRN (23:33)
[2020-12-11] MEDS: IBUPROFEN 400 MG TABLET (FP) PO PRN ×2 (05:57→22:31)
[2020-12-11] MEDS: hydrOXYzine PAMOATE 25 MG CAPSULE (FP) PO SCH ×5 (05:57→22:32)
[2020-12-11] MEDS ORDERED: methaDONE HCL 10 MG TABLET (FOR DETOX USE ONLY) ONE (09:19)
[2020-12-11 10:10] LABS: HEMATOCRIT 23.5 % (32.4-45.2); HEMOGLOBIN 7.7 GM/dL (10.7-15.3); MCH 23.2 pg (25.7-33.7); MCHC 32.7 g/dl (32.0-36.0); MEAN PLT VOLUME 8.9 fl (7.5-11.1); PLATELET COUNT 232 10^3/uL (134-434); RBC 3.31 M/mm3 (3.60-5.2); RDW 18.4 % (11.6-15.6); WHITE BLOOD COUNT 4.4 K/mm3 (4.0-10.0)
[2020-12-11 10:16] LABS: ALBUMIN 3.1 g/dl (3.4-5.0)
[2020-12-11 10:18] LABS: CALCIUM 8.7 mg/dL (8.5-10.1)
[2020-12-11 10:22] LABS: CREATININE 0.8 mg/dL (0.55-1.3)
[2020-12-11 10:23] LABS: BILIRUBIN,TOTAL 0.3 mg/dL (0.2-1); TOT PROT 6.2 g/dl (6.4-8.2)
[2020-12-11] MEDS: PRENATAL VITAMINS W/ FOLIC ACID TABLET (FP) PO SCH (10:42)
[2020-12-11] MEDS ORDERED: MAGNESIUM HYDROX 2400MG/30ML ORAL SUSPENSION 30 ML CUP PO ONE (11:20)
[2020-12-11] MEDS ORDERED: COLLOIDAL OATMEAL 1 BAR EACH TP PRN (14:29)
[2020-12-11] MEDS: THIAMINE HCL 100 MG TABLET (FP) PO SCH (22:32)
[2020-12-11] MEDS: MIRTAZAPINE 30 MG TABLET PO SCH (22:32)
[2020-12-11] MEDS: MELATONIN 5 MG TABLETS PO SCH (22:32)
[2020-12-11] MEDS: MINERAL OIL/PETROLAT/WATER TOPICAL CREAM 113 GM JAR TP SCH (22:32)
[2020-12-12] MEDS: hydrOXYzine PAMOATE 25 MG CAPSULE (FP) PO SCH ×5 (05:50→22:26)
[2020-12-12] MEDS: IBUPROFEN 400 MG TABLET (FP) PO PRN ×3 (05:50→23:50)
[2020-12-12] MEDS ORDERED: methaDONE HCL 10 MG TABLET (FOR DETOX USE ONLY) PO ONE (10:00)
[2020-12-12] MEDS ORDERED: DOCUSATE SODIUM 100 MG CAPSULE (FP) PO SCH (10:15)
[2020-12-12] MEDS: PRENATAL VITAMINS W/ FOLIC ACID TABLET (FP) PO SCH (10:36)
[2020-12-12] MEDS: MINERAL OIL/PETROLAT/WATER TOPICAL CREAM 113 GM JAR TP SCH ×2 (10:36→22:24)
[2020-12-12] MEDS: FERROUS SO4 325 MG TABLET (FP) PO SCH (10:38)
[2020-12-12] MEDS: DOCUSATE SODIUM 100 MG CAPSULE (FP) PO SCH ×2 (14:28→22:23)
[2020-12-12] MEDS: ACETAMINOPHEN 325 MG TABLET (FP) PO PRN ×2 (17:26→23:50)
[2020-12-12] MEDS: MELATONIN 5 MG TABLETS PO SCH (22:23)
[2020-12-12] MEDS: MIRTAZAPINE 30 MG TABLET PO SCH (22:23)
[2020-12-12] MEDS: THIAMINE HCL 100 MG TABLET (FP) PO SCH (22:23)
[2020-12-13] MEDS: hydrOXYzine PAMOATE 25 MG CAPSULE (FP) PO SCH ×5 (06:18→22:25)
[2020-12-13] MEDS: DOCUSATE SODIUM 100 MG CAPSULE (FP) PO SCH ×3 (06:18→22:25)
[2020-12-13] MEDS: IBUPROFEN 400 MG TABLET (FP) PO PRN ×3 (06:19→22:26)
[2020-12-13 08:58] LABS: EOS % 5.3 % (0-4.5); HEMATOCRIT 25.9 % (32.4-45.2); HEMOGLOBIN 8.4 GM/dL (10.7-15.3); LYMPH % 46.8 % (8-40); MCHC 32.3 g/dl (32.0-36.0); MEAN CELL VOLUME 71.2 fl (80-96); MEAN PLT VOLUME 9.1 fl (7.5-11.1); MONO % 9.4 % (3.8-10.2); NEUT % 37.5 % (42.8-82.8); PLATELET COUNT 246 10^3/uL (134-434); RBC 3.64 M/mm3 (3.60-5.2); RDW 18.6 % (11.6-15.6); WHITE BLOOD COUNT 4.6 K/mm3 (4.0-10.0)
[2020-12-13] MEDS ORDERED: methaDONE HCL 10 MG TABLET (FOR DETOX USE ONLY) ONE (09:12)
[2020-12-13] MEDS: FERROUS SO4 325 MG TABLET (FP) PO SCH (10:16)
[2020-12-13] MEDS: PRENATAL VITAMINS W/ FOLIC ACID TABLET (FP) PO SCH (10:16)
[2020-12-13] MEDS: MINERAL OIL/PETROLAT/WATER TOPICAL CREAM 113 GM JAR TP SCH ×2 (11:00→22:25)
[2020-12-13] MEDS: MELATONIN 5 MG TABLETS PO SCH (22:25)
[2020-12-13] MEDS: THIAMINE HCL 100 MG TABLET (FP) PO SCH (22:25)
[2020-12-13] MEDS: MIRTAZAPINE 30 MG TABLET PO SCH (22:25)
[2020-12-14] MEDS: hydrOXYzine PAMOATE 25 MG CAPSULE (FP) PO SCH ×5 (05:52→22:19)
[2020-12-14] MEDS: DOCUSATE SODIUM 100 MG CAPSULE (FP) PO SCH ×3 (05:52→22:20)
[2020-12-14] MEDS: IBUPROFEN 400 MG TABLET (FP) PO PRN ×2 (05:53→17:52)
[2020-12-14] MEDS ORDERED: methaDONE HCL 10 MG TABLET (FOR DETOX USE ONLY) PO ONE (10:00)
[2020-12-14 10:17] LABS: BASO % 0.9 % (0-2.0); EOS % 4.5 % (0-4.5); HEMATOCRIT 26.4 % (32.4-45.2); HEMOGLOBIN 8.5 GM/dL (10.7-15.3); LYMPH % 38.9 % (8-40); MCH 22.7 pg (25.7-33.7); MCHC 32.1 g/dl (32.0-36.0); MEAN CELL VOLUME 70.8 fl (80-96); MEAN PLT VOLUME 8.8 fl (7.5-11.1); MONO % 11.4 % (3.8-10.2); NEUT % 44.3 % (42.8-82.8); PLATELET COUNT 276 10^3/uL (134-434); RBC 3.73 M/mm3 (3.60-5.2); RDW 18.9 % (11.6-15.6); WHITE BLOOD COUNT 5.3 K/mm3 (4.0-10.0)
[2020-12-14] MEDS: PRENATAL VITAMINS W/ FOLIC ACID TABLET (FP) PO SCH (10:22)
[2020-12-14] MEDS: MINERAL OIL/PETROLAT/WATER TOPICAL CREAM 113 GM JAR TP SCH ×2 (10:22→22:19)
[2020-12-14] MEDS: MELATONIN 5 MG TABLETS PO SCH (22:19)
[2020-12-14] MEDS: MIRTAZAPINE 30 MG TABLET PO SCH (22:19)
[2020-12-14] MEDS: THIAMINE HCL 100 MG TABLET (FP) PO SCH (22:19)
[2020-12-15] MEDS: hydrOXYzine PAMOATE 25 MG CAPSULE (FP) PO SCH ×3 (05:38→13:16)
[2020-12-15] MEDS: DOCUSATE SODIUM 100 MG CAPSULE (FP) PO SCH ×2 (05:38→13:16)
[2020-12-15] MEDS: IBUPROFEN 400 MG TABLET (FP) PO PRN (05:56)
[2020-12-15] MEDS: MINERAL OIL/PETROLAT/WATER TOPICAL CREAM 113 GM JAR TP SCH (10:29)
[2020-12-15] MEDS: PRENATAL VITAMINS W/ FOLIC ACID TABLET (FP) PO SCH (10:29)
[2020-12-15 13:06] VITALS: BP 104/70; PULSE 72; TEMP 96.8
== END 2020-12-15 17:42 | disposition other institution (70) | DRG 773 ==
LOC: YASAS 12:08 → Y6N 19:14
PROVIDERS: ADMIT Allergy & Immunology; ATTEND Allergy & Immunology
PROC: HZ2ZZZZ Detoxification Services for Substance Abuse Treatment (ICD-10-PCS; principal; 2020-12-10)
DX: F11.23 Opioid dependence with withdrawal (principal); F14.20 Cocaine dependence, uncomplicated; F17.210 Nicotine dependence, cigarettes, uncomplicated; F19.282 Other psychoactive substance dependence with psychoactive substance-induced sleep disorder; F33.9 Major depressive disorder, recurrent, unspecified; D50.8 Other iron deficiency anemias; Z56.0 Unemployment, unspecified; Z59.0 Homelessness
CPT/HCPCS: 36415; 80053; 81025; 82607; 82728; 83540; 83550; 85025; 85027; 86780; C9803; U0003; U0005

== ENCOUNTER 2020-12-15 18:02 | Inpatient (IN) | payer OTHER ==
[~2020-12-15 18:02] MED LIST: ACETAMINOPHEN 325 MG TABLET (FP) PO PRN; LOPERAMIDE HCL 2 MG CAPSULE PO PRN; MAG HYDROX/AL HYDROX/SIMETH 30 ML UNIT-DOSE CUP PO PRN; MAGNESIUM CITRATE 300 ML BOTTLE PO PRN; MAGNESIUM HYDROX 2400MG/30ML ORAL SUSPENSION 30 ML CUP PO PRN; P-EPHED 60MG/TRIPROLIDI 2.5MG TABLET PO PRN; guaiFENesin 200 MG/10 ML 10 ML UNIT-DOSE CUPS PO PRN
[2020-12-15] MEDS: IBUPROFEN 400 MG TABLET (FP) PO PRN (20:00)
[2020-12-15] MEDS: MIRTAZAPINE 30 MG TABLET PO SCH (21:27)
[2020-12-15] MEDS: THIAMINE HCL 100 MG TABLET (FP) PO SCH (21:27)
[2020-12-15] MEDS: hydrOXYzine PAMOATE 25 MG CAPSULE (FP) PO SCH (21:28)
[2020-12-15] MEDS: MELATONIN 5 MG TABLETS PO SCH (21:28)
[2020-12-15] MEDS: DOCUSATE SODIUM 100 MG CAPSULE (FP) PO SCH (21:29)
[2020-12-16] MEDS: IBUPROFEN 400 MG TABLET (FP) PO PRN ×2 (04:59→13:42)
[2020-12-16] MEDS: hydrOXYzine PAMOATE 25 MG CAPSULE (FP) PO SCH ×7 (06:30→21:18)
[2020-12-16] MEDS: PRENATAL VITAMINS W/ FOLIC ACID TABLET (FP) PO SCH (09:36)
[2020-12-16] MEDS: DOCUSATE SODIUM 100 MG CAPSULE (FP) PO SCH ×4 (09:36→21:18)
[2020-12-16] MEDS: METHOCARBAMOL 500 MG TABLET PO PRN (17:00)
[2020-12-16] MEDS: MIRTAZAPINE 30 MG TABLET PO SCH (21:18)
[2020-12-16] MEDS: THIAMINE HCL 100 MG TABLET (FP) PO SCH (21:18)
[2020-12-16] MEDS: MELATONIN 5 MG TABLETS PO SCH (21:19)
[2020-12-17] MEDS: DOCUSATE SODIUM 100 MG CAPSULE (FP) PO SCH ×3 (07:09→21:48)
[2020-12-17] MEDS: hydrOXYzine PAMOATE 25 MG CAPSULE (FP) PO SCH ×5 (07:09→21:49)
[2020-12-17] MEDS: PRENATAL VITAMINS W/ FOLIC ACID TABLET (FP) PO SCH (09:47)
[2020-12-17] MEDS: METHOCARBAMOL 500 MG TABLET PO PRN ×2 (09:47→21:49)
[2020-12-17] MEDS: MELATONIN 5 MG TABLETS PO SCH (21:48)
[2020-12-17] MEDS: MIRTAZAPINE 30 MG TABLET PO SCH (21:48)
[2020-12-17] MEDS: THIAMINE HCL 100 MG TABLET (FP) PO SCH (21:49)
[2020-12-18] MEDS: DOCUSATE SODIUM 100 MG CAPSULE (FP) PO SCH ×3 (07:14→21:08)
[2020-12-18] MEDS: hydrOXYzine PAMOATE 25 MG CAPSULE (FP) PO SCH ×5 (07:15→21:09)
[2020-12-18] MEDS: PRENATAL VITAMINS W/ FOLIC ACID TABLET (FP) PO SCH (09:40)
[2020-12-18] MEDS: MIRTAZAPINE 30 MG TABLET PO SCH (21:08)
[2020-12-18] MEDS: MELATONIN 5 MG TABLETS PO SCH (21:08)
[2020-12-18] MEDS: THIAMINE HCL 100 MG TABLET (FP) PO SCH (21:10)
[2020-12-19] MEDS: IBUPROFEN 400 MG TABLET (FP) PO PRN ×3 (07:04→21:06)
[2020-12-19] MEDS: hydrOXYzine PAMOATE 25 MG CAPSULE (FP) PO SCH ×2 (07:06→09:44)
[2020-12-19] MEDS: DOCUSATE SODIUM 100 MG CAPSULE (FP) PO SCH ×3 (07:06→21:04)
[2020-12-19] MEDS: PRENATAL VITAMINS W/ FOLIC ACID TABLET (FP) PO SCH (09:44)
[2020-12-19] MEDS ORDERED: LIDOCAINE VISCOUS 2% ORAL/TOP 15 ML UNIT-DOSE CUP MM PRN (15:36)
[2020-12-19] MEDS: MELATONIN 5 MG TABLETS PO SCH (21:04)
[2020-12-19] MEDS: hydrOXYzine PAMOATE 25 MG CAPSULE (FP) PO PRN (21:04)
[2020-12-19] MEDS: METHOCARBAMOL 500 MG TABLET PO PRN (21:04)
[2020-12-19] MEDS: AMOXICILLIN 500 MG CAPSULE (FP) PO SCH (21:04)
[2020-12-19] MEDS: MIRTAZAPINE 30 MG TABLET PO SCH (21:51)
[2020-12-19] MEDS: THIAMINE HCL 100 MG TABLET (FP) PO SCH (22:15)
[2020-12-20] MEDS: DOCUSATE SODIUM 100 MG CAPSULE (FP) PO SCH ×3 (07:49→21:05)
[2020-12-20] MEDS: AMOXICILLIN 500 MG CAPSULE (FP) PO SCH ×3 (07:49→21:05)
[2020-12-20] MEDS: IBUPROFEN 400 MG TABLET (FP) PO PRN ×2 (07:49→17:56)
[2020-12-20] MEDS: hydrOXYzine PAMOATE 25 MG CAPSULE (FP) PO PRN (09:44)
[2020-12-20] MEDS: PRENATAL VITAMINS W/ FOLIC ACID TABLET (FP) PO SCH (09:44)
[2020-12-20] MEDS: THIAMINE HCL 100 MG TABLET (FP) PO SCH (21:05)
[2020-12-20] MEDS: MIRTAZAPINE 30 MG TABLET PO SCH (21:05)
[2020-12-20] MEDS: MELATONIN 5 MG TABLETS PO SCH (21:06)
[2020-12-21] MEDS: DOCUSATE SODIUM 100 MG CAPSULE (FP) PO SCH ×3 (06:10→21:05)
[2020-12-21] MEDS: IBUPROFEN 400 MG TABLET (FP) PO PRN ×3 (06:10→22:54)
[2020-12-21] MEDS: AMOXICILLIN 500 MG CAPSULE (FP) PO SCH ×3 (06:11→21:05)
[2020-12-21] MEDS: hydrOXYzine PAMOATE 25 MG CAPSULE (FP) PO PRN ×2 (06:11→21:06)
[2020-12-21] MEDS: PRENATAL VITAMINS W/ FOLIC ACID TABLET (FP) PO SCH (09:31)
[2020-12-21] MEDS: MELATONIN 5 MG TABLETS PO SCH (21:05)
[2020-12-21] MEDS: MIRTAZAPINE 30 MG TABLET PO SCH (21:06)
[2020-12-21] MEDS: THIAMINE HCL 100 MG TABLET (FP) PO SCH (21:06)
[2020-12-21] MEDS: METHOCARBAMOL 500 MG TABLET PO PRN (21:07)
[2020-12-22] MEDS: hydrOXYzine PAMOATE 25 MG CAPSULE (FP) PO PRN ×2 (06:42→21:08)
[2020-12-22] MEDS: AMOXICILLIN 500 MG CAPSULE (FP) PO SCH ×3 (06:42→21:05)
[2020-12-22] MEDS: IBUPROFEN 400 MG TABLET (FP) PO PRN ×2 (06:42→21:08)
[2020-12-22] MEDS: DOCUSATE SODIUM 100 MG CAPSULE (FP) PO SCH ×3 (06:42→21:09)
[2020-12-22] MEDS: PRENATAL VITAMINS W/ FOLIC ACID TABLET (FP) PO SCH (09:45)
[2020-12-22] MEDS: METHOCARBAMOL 500 MG TABLET PO PRN (09:46)
[2020-12-22] MEDS: THIAMINE HCL 100 MG TABLET (FP) PO SCH (21:09)
[2020-12-22] MEDS: MELATONIN 5 MG TABLETS PO SCH (21:09)
[2020-12-22] MEDS: MIRTAZAPINE 30 MG TABLET PO SCH (22:21)
[2020-12-23] MEDS: DOCUSATE SODIUM 100 MG CAPSULE (FP) PO SCH ×3 (05:38→21:07)
[2020-12-23] MEDS: AMOXICILLIN 500 MG CAPSULE (FP) PO SCH ×3 (05:38→21:07)
[2020-12-23] MEDS: IBUPROFEN 400 MG TABLET (FP) PO PRN ×2 (05:38→21:09)
[2020-12-23] MEDS: PRENATAL VITAMINS W/ FOLIC ACID TABLET (FP) PO SCH (11:20)
[2020-12-23] MEDS ORDERED: BUPRENORPHINE/NALOXONE 2 MG/0.5 MG FILM PACKET SL ONE (13:51)
[2020-12-23] MEDS: MELATONIN 5 MG TABLETS PO SCH (21:07)
[2020-12-23] MEDS: THIAMINE HCL 100 MG TABLET (FP) PO SCH (21:07)
[2020-12-23] MEDS: MIRTAZAPINE 30 MG TABLET PO SCH (21:07)
[2020-12-23] MEDS: hydrOXYzine PAMOATE 25 MG CAPSULE (FP) PO PRN (21:08)
[2020-12-24] MEDS: DOCUSATE SODIUM 100 MG CAPSULE (FP) PO SCH ×3 (06:48→22:22)
[2020-12-24] MEDS: AMOXICILLIN 500 MG CAPSULE (FP) PO SCH ×3 (06:48→22:22)
[2020-12-24] MEDS ORDERED: BUPRENORPHINE/NALOXONE 2 MG/0.5 MG FILM PACKET SL ONE (10:00)
[2020-12-24] MEDS: PRENATAL VITAMINS W/ FOLIC ACID TABLET (FP) PO SCH (10:41)
[2020-12-24] MEDS: hydrOXYzine PAMOATE 25 MG CAPSULE (FP) PO PRN ×3 (10:42→22:26)
[2020-12-24] MEDS: IBUPROFEN 400 MG TABLET (FP) PO PRN ×2 (10:42→22:24)
[2020-12-24] MEDS: MIRTAZAPINE 30 MG TABLET PO SCH (22:22)
[2020-12-24] MEDS: BUPRENORPHINE/NALOXONE 4 MG/1 MG FILM PACKET SL SCH (22:23)
[2020-12-24] MEDS: THIAMINE HCL 100 MG TABLET (FP) PO SCH (22:23)
[2020-12-24] MEDS: MELATONIN 5 MG TABLETS PO SCH (22:23)
[2020-12-25] MEDS: hydrOXYzine PAMOATE 25 MG CAPSULE (FP) PO PRN (06:18)
[2020-12-25] MEDS: DOCUSATE SODIUM 100 MG CAPSULE (FP) PO SCH ×3 (06:18→21:54)
[2020-12-25] MEDS: AMOXICILLIN 500 MG CAPSULE (FP) PO SCH ×3 (06:18→21:54)
[2020-12-25] MEDS: BUPRENORPHINE/NALOXONE 4 MG/1 MG FILM PACKET SL SCH ×2 (10:32→21:55)
[2020-12-25] MEDS: PRENATAL VITAMINS W/ FOLIC ACID TABLET (FP) PO SCH (10:32)
[2020-12-25] MEDS: MELATONIN 5 MG TABLETS PO SCH (21:54)
[2020-12-25] MEDS: THIAMINE HCL 100 MG TABLET (FP) PO SCH (21:54)
[2020-12-25] MEDS: MIRTAZAPINE 30 MG TABLET PO SCH (21:55)
[2020-12-26] MEDS: AMOXICILLIN 500 MG CAPSULE (FP) PO SCH ×3 (06:29→22:09)
[2020-12-26] MEDS: DOCUSATE SODIUM 100 MG CAPSULE (FP) PO SCH ×3 (06:29→22:08)
[2020-12-26] MEDS: BUPRENORPHINE/NALOXONE 4 MG/1 MG FILM PACKET SL SCH ×2 (10:32→22:13)
[2020-12-26] MEDS: PRENATAL VITAMINS W/ FOLIC ACID TABLET (FP) PO SCH (10:32)
[2020-12-26] MEDS ORDERED: COLLOIDAL OATMEAL 1 BAR EACH TP PRN (10:42)
[2020-12-26] MEDS: TOLNAFTATE 1% CREAM 15 GM TUBE TP SCH ×2 (11:51→22:10)
[2020-12-26] MEDS: MIRTAZAPINE 30 MG TABLET PO SCH (22:08)
[2020-12-26] MEDS: THIAMINE HCL 100 MG TABLET (FP) PO SCH (22:09)
[2020-12-26] MEDS: MELATONIN 5 MG TABLETS PO SCH (22:09)
[2020-12-26] MEDS: IBUPROFEN 400 MG TABLET (FP) PO PRN (22:12)
[2020-12-27] MEDS: AMOXICILLIN 500 MG CAPSULE (FP) PO SCH ×3 (06:40→21:55)
[2020-12-27] MEDS: DOCUSATE SODIUM 100 MG CAPSULE (FP) PO SCH ×3 (06:40→21:55)
[2020-12-27] MEDS: TOLNAFTATE 1% CREAM 15 GM TUBE TP SCH ×2 (11:02→21:56)
[2020-12-27] MEDS: PRENATAL VITAMINS W/ FOLIC ACID TABLET (FP) PO SCH (11:02)
[2020-12-27] MEDS: BUPRENORPHINE/NALOXONE 4 MG/1 MG FILM PACKET SL SCH ×2 (11:02→21:55)
[2020-12-27] MEDS: IBUPROFEN 400 MG TABLET (FP) PO PRN (11:02)
[2020-12-27] MEDS: hydrOXYzine PAMOATE 25 MG CAPSULE (FP) PO PRN ×2 (14:21→21:55)
[2020-12-27] MEDS: MELATONIN 5 MG TABLETS PO SCH (21:55)
[2020-12-27] MEDS: THIAMINE HCL 100 MG TABLET (FP) PO SCH (21:55)
[2020-12-27] MEDS: MIRTAZAPINE 30 MG TABLET PO SCH (21:57)
[2020-12-28] MEDS: AMOXICILLIN 500 MG CAPSULE (FP) PO SCH ×3 (06:11→22:23)
[2020-12-28] MEDS: DOCUSATE SODIUM 100 MG CAPSULE (FP) PO SCH ×3 (06:11→22:26)
[2020-12-28] MEDS: hydrOXYzine PAMOATE 25 MG CAPSULE (FP) PO PRN ×2 (10:44→22:25)
[2020-12-28] MEDS: IBUPROFEN 400 MG TABLET (FP) PO PRN (10:45)
[2020-12-28] MEDS: PRENATAL VITAMINS W/ FOLIC ACID TABLET (FP) PO SCH (10:45)
[2020-12-28] MEDS: BUPRENORPHINE/NALOXONE 4 MG/1 MG FILM PACKET SL SCH ×2 (10:46→22:24)
[2020-12-28] MEDS: TOLNAFTATE 1% CREAM 15 GM TUBE TP SCH ×2 (10:47→22:24)
[2020-12-28] MEDS: MELATONIN 5 MG TABLETS PO SCH (22:23)
[2020-12-28] MEDS: THIAMINE HCL 100 MG TABLET (FP) PO SCH (22:23)
[2020-12-28] MEDS: MIRTAZAPINE 30 MG TABLET PO SCH (22:25)
[2020-12-29] MEDS: DOCUSATE SODIUM 100 MG CAPSULE (FP) PO SCH (06:11)
[2020-12-29] MEDS: AMOXICILLIN 500 MG CAPSULE (FP) PO SCH (06:11)
[2020-12-29] MEDS: IBUPROFEN 400 MG TABLET (FP) PO PRN (06:12)
[2020-12-29 07:28] VITALS: BP 107/63; PULSE 60; TEMP 97.2
[2020-12-29] MEDS: PRENATAL VITAMINS W/ FOLIC ACID TABLET (FP) PO SCH (09:47)
[2020-12-29] MEDS: BUPRENORPHINE/NALOXONE 4 MG/1 MG FILM PACKET SL SCH (09:47)
[2020-12-29] MEDS: TOLNAFTATE 1% CREAM 15 GM TUBE TP SCH (09:48)
== END 2020-12-29 10:35 | disposition home or self-care (01) | DRG 772 ==
LOC: YASAS 18:02 → Y5N 18:03
PROVIDERS: ADMIT Allergy & Immunology; ATTEND Allergy & Immunology
PROC: HZ42ZZZ Group Counseling for Substance Abuse Treatment, Cognitive-Behavioral (ICD-10-PCS; principal; 2020-12-15)
DX: F10.20 Alcohol dependence, uncomplicated (principal); F14.20 Cocaine dependence, uncomplicated; F12.20 Cannabis dependence, uncomplicated; F17.210 Nicotine dependence, cigarettes, uncomplicated; F41.9 Anxiety disorder, unspecified; F33.9 Major depressive disorder, recurrent, unspecified; K04.7 Periapical abscess without sinus; Z51.81 Encounter for therapeutic drug level monitoring